=== PATIENT | male | born 1955 | race Caucasian/White ===

== ENCOUNTER 2016-04-26 13:22 | Emergency (ER) | payer SELFPAY ==
--- NOTE | 2016-04-26 13:51 | ED Physician Chart ---
Chief Complaint/HPI - Patient Information Date Seen:: 04/26/16 Time Seen:: 13:40 Chief Complaint:: Constipated for about 5 days. History of Present Illness:: As above. Pt has been taking po well without N/V. Pt has tried OTC saline enema without resolution. No abdominal pain or discomfort. No fever. No other bodily pain or discomfort. Pt has had rectal discomfort and at times pain. Allergies:: Penicillins Vitals:: see Nurse Note. Historian:: Patient Family MD/PCP:: Dr. Campoverde LMP:: N/A Review:: Nurse's Note Reviewed Review of Systems - Review of Systems General/Constitutional: No fever, No chills, No weight loss, No weakness, No diaphoresis, No edema, No loss of appetite Skin: No skin lesions, No rash, No bruising Head: No headache, No light-headedness Eyes: No loss of vision, No pain, No diplopia ENT: No earache, No nasal drainage, No sore throat, No tinnitus Neck: No neck pain, No swelling, No thyromegaly, No stiffness, No mass noted Cardio Vascular: No chest pain, No palpitations, No PND, No orthopnea, No edema Pulmonary: No SOB, No cough, No sputum, No wheezing GI: No nausea, No vomiting, No diarrhea, No pain, No melena, No hematochezia, Constipation, No hematemesis G/U: No dysuria, No frequency, No hematuria Musculoskeletal: No bone or joint pain, No back pain, No muscle pain Endocrine: No polyuria, No polydipsia Psychiatric: No prior psych history Hematopoietic: No bruising, No lymphadenopathy Allergic/Immuno: No urticaria, No angioedema Neurological: No syncope, No focal symptoms, No weakness, No paresthesia, No headache, No seizure, No dizziness, No confusion, No vertigo Past Medical History - Past Medical History Past Medical History: HTN Family History: Heart disease (father), Diabetes Melitus (father), HTN (father, MGF.), Cancer (M uncle.) Social History: Non Smoker, No Alcohol, No Drug Use, Single, Other (lives with his mother.) Employment:: unemployed. Surgical History: other (hemorrhoid surgery '78.) Psychiatricy History: None Medication: Reviewed Family Medical History - Family Member Mother History Unknown: Yes Physical Exam - Physical Examination General/Constitutional: Awake, Well-developed, well-nourished, Alert, No distress, GCS 15, Non-toxic appearing, Ambulatory Other Gen/Cons comments:: Breathes comfortably, speaks clearly, and ambulates without difficulty. Head: Atraumatic Eyes: Lids, conjuctiva normal, PERRL, EOMI Skin: Nl inspection, No rash, No skin lesions, No ecchymosis, Well hydrated, No lymphadenopathy Neck: Nontender, Full ROM w/o pain, No nuchal rigidity, No bruit, No mass, No stridor Respiratory: Nl effort/Exclusion, Clear to Auscultation, No Wheeze/Rhonchi/Rales Cardio Vascular: RRR, No murmur, gallop, rubs GI: No tenderness/rebounding/guarding, No organomegaly, No hernia, Normal BS's, Nondistended, No mass/bruits, No McBurney tenderness Other GI comments:: Abdomen is soft. Rectal exam shows hard brown stool. No mass. Otherwise unremarkable. Extremities: No tenderness or effusion, Full ROM, normal strength in all extremities, No edema, Normal digits & nails Neuro/Psych: Alert/oriented (oriented x 3), Judgement/insight normal, Mood normal, Normal gait, No focal deficits Misc: normal gait, Normal back, No paraspinal tenderness ED Septic Shock - . Is Septic Shock (SBP<90, OR Lactate>4 mmol\L) present?: No Reassessment (Disposition) - Reassessment Reassessment:: 1510 Pt remains stable without abdominal pain except rectal discomfort due to constipation. Pt requests to go home now. Aftercare instructions given. Reassessment Condition:: Improved - Diagnosis Diagnosis:: Fecal impaction/constipation, stable. - Aftercare/Follow up Instructions Aftercare/Follow-Up Instructions:: Refer to Discharge Instructions Notes:: No solid food today. Clear liquid only. May take Milk of Magnesia 30 ml po q6h as directed for constipation May use fleet enemia one per rectum 3 hours after Milk of Magnesia. Abdominal pain instructions given. F/U with PCP Dr. Campoverde in one day for recheck. Return to ER immediately if condition worsens or if any further questions/problems. Medication Prescribed:: None - Patient Disposition Discharge/Transfer:: Home Time:: 15:15 Condition at Disposition:: Stable ED Discharge Plan - Patient Disposition Admit/Discharge/Transfer: PT DISCHARGED HOME Condition at Disposition: Improved Instructions: Fecal Impaction Accepting Physician: Eric Campoverde [Affiliate] -
== END 2016-04-26 14:45 | disposition home or self-care (01) ==
LOC: ER 13:22
DX: K59.00 Constipation, unspecified (principal); I10 Essential (primary) hypertension; Z88.0 Allergy status to penicillin
CPT/HCPCS: 99283; 96372; J1885; Z7502